=== PATIENT | female | born 1990 | race Caucasian/White ===

== ENCOUNTER 2021-06-21 17:52 | Observation (INO) | payer SELFPAY ==
[~2021-06-21] VITALS: Ht 160 cm; Wt 73.0 kg
[2021-06-21] MEDS ORDERED: LACTATED RINGERS 1,000 ML IV SCH ×2 (20:00)
== END 2021-06-21 23:58 | disposition home or self-care (01) ==
LOC: 8 EST LDRP 17:52
PROVIDERS: ADMIT Specialist; ATTEND Specialist
DX: O62.9 Abnormality of forces of labor, unspecified (principal); Z3A.40 40 weeks gestation of pregnancy
CPT/HCPCS: 59025; 96360; 96361; G0378; 99281; J7120

== ENCOUNTER 2021-06-22 16:17 | Inpatient (IN) | payer SELFPAY ==
[~2021-06-22] VITALS: Ht 157.5 cm; Wt 70.0 kg
[2021-06-22] MEDS ORDERED: LACTATED RINGERS 1,000 ML IV SCH (17:30)
[2021-06-22] MEDS ORDERED: NALOXONE HCL 0.4 MG/ML 1ML VIAL IM PRN (17:30)
[2021-06-22] MEDS ORDERED: METHYLERGONOVINE MALEATE 0.2 MG/ML IM PRN (17:30)
[2021-06-22] MEDS ORDERED: DEXT 5%/LR + PITOCIN 20UNITS/L 1,000 ML IV SCH ×2 (17:30→21:00)
[2021-06-22 18:25] LABS: BASOPHILS % 0.4 % (0.0-2.0); EOSINOPHILS % 0.6 % (0.0-5.0); HEMATOCRIT. 35.4 % (36.0-48.0); HEMOGLOBIN. 12.1 g/dL (12.0-16.0); LYMPHOCYTES % 28.6 % (20.0-50.0); MEAN CORPUSCULAR HEMOGLOBIN 28.8 pg (28.0-32.0); MEAN CORPUSCULAR VOLUME 84.4 fL (81.0-99.0); MEAN PLATELET VOLUME 9.8 fl (7.4-10.4); MONOCYTES % 6.6 % (2.0-8.0); NEUTROPHILS % 63.8 % (40.0-76.0); PLATELET 282 x1000/uL (130-400); RED BLOOD CELL COUNT 4.19 mill/uL (4.2-5.4); RED CELL DISTRIBUTION WIDTH 14.6 % (11.6-14.6)
[2021-06-22] MEDS ORDERED: CITRIC ACID/SODIUM CITRATE SOLN 30ML UDC PO NR ×2 (18:30)
[2021-06-22 18:36] LABS: CHLORIDE 108 mEq/L (98-107)
[2021-06-22] MEDS ORDERED: MORPHINE SULFATE/PF 1MG/ML 10ML AMP ONE (18:37)
[2021-06-22] MEDS ORDERED: EPHEDRINE SULFATE 50MG/ML VIAL ONE (18:37)
[2021-06-22] MEDS ORDERED: PHENYLEPHRINE HCL 10 MG/ML 1ML (IV VIAL) IV ONE (18:37)
[2021-06-22] MEDS ORDERED: ONDANSETRON HCL 4MG/2ML INJ ONE (18:37)
[2021-06-22] MEDS ORDERED: OXYTOCIN 10 UNITS/ML 1ML ONE (18:37)
[2021-06-22] MEDS ORDERED: FENTANYL CITRATE/PF 50MCG/ML 2ML VIAL ONE (18:37)
[2021-06-22] MEDS ORDERED: CEFAZOLIN SODIUM 1000MG/VIAL ONE (18:38)
[2021-06-22] MEDS ORDERED: SODIUM CHLORIDE 0.9% 10ML VIAL ONE (18:40)
[2021-06-22 18:41] LABS: INR 0.9; PARTIAL THROMBOPLASTIN TIME 26.1 sec (23.4-31.0); PROTHROMBIN TIME 10.2 sec (9.6-11.0)
[2021-06-22 19:32] LABS: HEPATITIS B SURFACE ANTIGEN NEGATIVE
[2021-06-22] MEDS ORDERED: DIPHENHYDRAMINE 50MG/ML VIAL ONE (20:19)
[2021-06-22] MEDS ORDERED: KETOROLAC 60MG/2ML VIAL IM ONE (20:19)
[2021-06-22] MEDS ORDERED: NALOXONE HCL 0.4 MG/ML 1ML VIAL IV PRN (20:30)
[2021-06-22] MEDS ORDERED: BUTORPHANOL TARTRATE 2 MG/ML VIAL IV PRN (20:30)
[2021-06-22] MEDS ORDERED: KETOROLAC 30MG/ML VIAL IM SCH (20:30)
[2021-06-22] MEDS ORDERED: DIPHENHYDRAMINE 50MG/ML VIAL IV PRN (20:30)
[2021-06-22] MEDS ORDERED: BISACODYL 10MG SUPP PR PRN (21:00)
[2021-06-22] MEDS ORDERED: KETOROLAC 30MG/ML VIAL IV PRN (21:00)
[2021-06-22] MEDS ORDERED: OXYCODONE HCL/ACETAMINOPHEN 5/325MG TABLET PO PRN (21:00)
[2021-06-22] MEDS ORDERED: RHO(D) IMMUNE GLOBULIN 300 MCG/SYR IM PRN (21:00)
[2021-06-22 23:00] VITALS: BP 114/70
[2021-06-22 23:30] VITALS: BP 109/68
[2021-06-23] VITALS: BP 120/75
[2021-06-23] MEDS ORDERED: FERROUS SULFATE 325MG TABLET PO SCH (07:30)
[2021-06-23 07:52] LABS: BASOPHILS % 0.1 % (0.0-2.0); EOSINOPHILS % 0.4 % (0.0-5.0); HEMATOCRIT. 30.9 % (36.0-48.0); HEMOGLOBIN. 10.6 g/dL (12.0-16.0); LYMPHOCYTES % 19.2 % (20.0-50.0); MEAN CORPUSCULAR VOLUME 84.8 fL (81.0-99.0); MEAN PLATELET VOLUME 9.4 fl (7.4-10.4); MONOCYTES % 7.6 % (2.0-8.0); NEUTROPHILS % 72.7 % (40.0-76.0); PLATELET 211 x1000/uL (130-400); RED BLOOD CELL COUNT 3.65 mill/uL (4.2-5.4); RED CELL DISTRIBUTION WIDTH 14.9 % (11.6-14.6)
[2021-06-23] MEDS ORDERED: PRENATAL VIT/FE FUMARATE/FA TABLET PO SCH (09:00)
[2021-06-23 20:00] VITALS: BP 99/60
[2021-06-24 04:30] VITALS: BP 96/54
[2021-06-24] MEDS: IBUPROFEN 800MG TABLET PO PRN ×3 (04:44→20:03)
[2021-06-24 09:00] VITALS: BP 91/47
[2021-06-24 15:00] VITALS: BP 94/50
[2021-06-24 20:00] VITALS: BP 105/68
[2021-06-25 04:05] VITALS: BP 94/55
[2021-06-25] MEDS: IBUPROFEN 800MG TABLET PO PRN (04:12)
[2021-06-25 08:15] VITALS: BP 98/56
== END 2021-06-25 12:40 | disposition home or self-care (01) | DRG 540 ==
LOC: 8 EST LDRP 16:17 → OBSVTOIN 16:17 → 8EST 22:45
PROVIDERS: ADMIT Obstetrics & Gynecology; ATTEND Obstetrics & Gynecology
PROC: 10D00Z1 Extraction of Products of Conception, Low, Open Approach (ICD-10-PCS; principal; 2021-06-22)
DX: O34.211 Maternal care for low transverse scar from previous cesarean delivery (principal); D62 Acute posthemorrhagic anemia; O99.03 Anemia complicating the puerperium; Z20.822 Contact with and (suspected) exposure to COVID-19; Z82.49 Family history of ischemic heart disease and other diseases of the circulatory system; Z3A.40 40 weeks gestation of pregnancy; Z37.0 Single live birth
CPT/HCPCS: 36415; 80053; 85025; 86592; 86703; 86762; 86850; 86900; 87340; 87426; 88307; 99281; G0378; J0690; J1200; J1885; J2274; J2370; J2405; J2590; J3010; J3490; J7120